=== PATIENT | female | born 1955 | race Caucasian/White ===

== ENCOUNTER 2018-03-07 11:42 | Emergency (ER) | payer OTHER ==
[~2018-03-07] VITALS: Ht 160 cm; Wt 99.8 kg
[2018-03-07 11:47] VITALS: Ht 160 cm; Wt 99.8 kg
[2018-03-07 13:45] VITALS: BP 131/68
== END 2018-03-07 13:45 | disposition home or self-care (01) ==
LOC: ED 11:42
DX: S82.035A Nondisplaced transverse fracture of left patella, initial encounter for closed fracture (principal); I10 Essential (primary) hypertension; W18.39XA Other fall on same level, initial encounter; Y93.01 Activity, walking, marching and hiking; Y92.480 Sidewalk as the place of occurrence of the external cause; Y99.8 Other external cause status

== ENCOUNTER 2018-07-16 13:23 | Emergency (ER) | payer OTHER ==
[~2018-07-16] VITALS: Ht 160 cm; Wt 103.9 kg
[2018-07-16 13:53] VITALS: Ht 160 cm; Wt 103.9 kg
[2018-07-16 16:09] VITALS: BP 133/79
== END 2018-07-16 16:09 | disposition home or self-care (01) ==
LOC: ED 13:23
DX: R05 Cough (principal); R04.0 Epistaxis; T46.4X5A Adverse effect of angiotensin-converting-enzyme inhibitors, initial encounter; I10 Essential (primary) hypertension; Y92.89 Other specified places as the place of occurrence of the external cause

== ENCOUNTER 2019-06-17 09:36 | Emergency (ER) | payer OTHER ==
[~2019-06-17] VITALS: Ht 162.6 cm; Wt 95.3 kg
[2019-06-17 09:47] VITALS: Ht 162.6 cm; Wt 95.3 kg
[2019-06-17 12:29] VITALS: BP 147/61
== END 2019-06-17 12:29 | disposition home or self-care (01) ==
LOC: ED 09:36
DX: J40 Bronchitis, not specified as acute or chronic (principal); I10 Essential (primary) hypertension; Z90.710 Acquired absence of both cervix and uterus
CPT/HCPCS: Q0092

== ENCOUNTER 2019-07-26 07:54 | Emergency (ER) | payer OTHER ==
[~2019-07-26] VITALS: Ht 162.6 cm; Wt 91.6 kg
[2019-07-26 07:59] VITALS: Ht 162.6 cm; Wt 91.6 kg
[2019-07-26 08:34] LABS: CALCIUM 8.9 mg/dL (8.5-10.1); CARBON DIOXIDE 30.2 mmol/L (21-32); CHLORIDE SERUM 105 mmol/L (98-107); CREATININE SERUM 0.8 mg/dL (0.6-1.0); GFR1 > 60 mL/min; GLUCOSE SERUM 102 mg/dL (74-106); POTASSIUM SERUM 4.2 mmol/L (3.5-5.1); SODIUM SERUM 141 mmol/L (136-145)
[2019-07-26 08:38] LABS: ALKALINE PHOSPHATASE 100 U/L (46-116); ALT/SGPT 19 U/L (14-59); AST/SGOT 22 U/L (15-37); BILIRUBIN TOTAL 0.3 mg/dL (0.20-1.00); LIPASE 64 IU/L (73-393)
[2019-07-26 08:48] LABS: BASOPHIL % 0.2 % (0-2)
[2019-07-26 08:51] LABS: RED CELL DISTRIBUTION WIDTH 18.3 % (11.5-14.5)
[2019-07-26 08:55] LABS: PLATELET COUNT 994 x10^3mcL (130-400)
[2019-07-26 10:15] VITALS: BP 120/56
[2019-07-26 10:38] LABS: UA SPECIFIC GRAVITY 1.025 (1.005-1.035); microscopic required? YES; urine erythrocyte NEGATIVE (NEGATIVE)
== END 2019-07-26 10:15 | disposition home or self-care (01) ==
LOC: ED 07:54
PROVIDERS: Emergency Medicine
DX: K29.70 Gastritis, unspecified, without bleeding (principal); D47.3 Essential (hemorrhagic) thrombocythemia; R05 Cough; D50.9 Iron deficiency anemia, unspecified; I10 Essential (primary) hypertension
CPT/HCPCS: J1885; J2405; J3490; J7030; Q0092